=== PATIENT | female | born 1960 | race Caucasian/White ===

== ENCOUNTER 2024-08-22 22:30 | Outpatient (CLI) | payer SELFPAY ==
--- NOTE | 2024-08-22 | DI.RAD_ITS ---
Exam(s) XR TOE RT FIFTH EXAM: XR TOE RT FIFTH CLINICAL HISTORY: PAIN TOE RT FOOT, M79.674, ABNL POSTERIOR ALIGNMENT, POSSIBLE DISLOCATION. TECHNIQUE: 2D digital imaging was performed. Three images were obtained. COMPARISON: No priors for comparison. FINDINGS: BONES: No acute fracture is present. No bony destructive lesion is seen. JOINTS: No dislocation present. SOFT TISSUE: Normal. IMPRESSION: No evidence of acute fracture, dislocation, or subluxation. DATA REPOSITORY: RADIATION DOSE DELIVERED:
--- NOTE | 2024-08-22 | DI.RAD_ITS ---
Exam(s) XR TOE RT FOURTH EXAM: XR TOE RT FOURTH CLINICAL HISTORY: PAIN TOE RT FOOT, M79.674, ABNL POSTERIOR ALIGNMENT, POSSIBLE DISLOCATION. TECHNIQUE: 2D digital imaging was performed. COMPARISON: No exams were available for comparison FINDINGS: BONES: No acute fracture is present. No bony destructive lesion is seen. JOINTS: There is a posterior subluxation at the PIP joint of the 4th toe. SOFT TISSUE: Soft tissue swelling of the 4th toe. IMPRESSION: Posterior subluxation of the PIP joint of the right 4th toe. No fracture is identified. DATA REPOSITORY: RADIATION DOSE DELIVERED:
--- OUTSIDE RECORDS SUMMARY | 2024-08-22 22:41 | XMS_ITS | Encounter Summary ---
Author Organization [facility] Address [address] [place] [address] Care Team Providers Care Geomagnetician Name Role Phone Unavailable Primary Care Provider Unavailabl e Encounter Details Date Type Department Care Team (Late st Contact Info) Description 10/12/2003 Results Only [facility] - Maple conversion [address] [place] [address] Melinda Rodriguez, [facility] [address] [place] [address] Social History Tobacco Use Types Packs/Day Years Used Date Smoking Tobacco: Never Assessed Sex and Gender Information Value Date Recorded Sex Assigned at Not on file Gender Identity Not on file Sexual Orientation Not on file documented as of this encounter Plan of Treatment Not on file documented as of this encounter Procedures Procedure Name Priority Date/Time Associated Diagnosis Comments CYTOPATHOLOGY Routine 10/12/2003 0:00 EST documented in this encounter Results * CYTOPATHOLOGY (10/12/2003 0:00 EST) Pathology Report: CYTOPATHOLOGY REPORT Reports generated via electronic interface contain original data; however they are lacking the format of the original report. Caution should be taken when reading/interpreti ng unformatted reports. Name: ? YULIYA BONNER ? Accession #: ? [id number] : ? 1960 (Age: 42) ??F ?Collect Date: ? 10/12/2003 Location: ? [facility] ? Receive Date: ? 10/16/2003 Provider: ?MELINDA RODRIGUEZ DIRECTOR SHOPPER MARKETING Copy to: ? Specimen/Source: ?ThinPrep Pap Test, Cervix/Endocervix Last Menstrual Period: ? 09/30/03 Previous Gynecologic Pathology: ? ASC-US: 1996, paps neg since ? SPECIMEN ADEQUACY ? Satisfactory for Evaluation - transformation zone component present - scant squamous epithelial component secondary to excessive blood GENERAL CATEGORIZATION ? Negative for Intraepithelial Lesion or Malignancy ? Document reviewed and electronically signed by: ? Ingrid Sorto, SCT(ASCP) ? Report Date: ??10/18/2003 08:41 End of Report [facility] 10/12/2003 10/16/2003 Melinda Rodriguez DIRECTOR SHOPPER MARKETING PATHOLOGY ORDERABLES [facility] [address] [place] [address] documented in this encounter Visit Diagnoses Not on filedocumented in this encounter
--- OUTSIDE RECORDS SUMMARY | 2024-08-22 22:41 | XMS_ITS | Encounter Summary ---
Author Organization [facility] Address [address] [place] [address] Care Team Providers Care Ice Skating Teacher Name Role Phone Unavailable Primary Care Provider Unavailabl e Encounter Details Date Type Department Care Team (Late st Contact Info) Description 02/22/2012 Results Only [facility] - [facility] ([facility] [address] [place] [address] Jorden Ryan MD [address] [place] [address] [id number] Social History Tobacco Use Types Packs/Day Years Used Date Smoking Tobacco: Never Assessed Sex and Gender Information Value Date Recorded Sex Assigned at Not on file Gender Identity Not on file Sexual Orientation Not on file documented as of this encounter Plan of Treatment Not on file documented as of this encounter Procedures Procedure Name Priority Date/Time Associated Diagnosis Comments SURGICAL PATHOLOGY Routine 02/22/2012 0:00 EDT documented in this encounter Results * SURGICAL PATHOLOGY (02/22/2012 0:00 EDT) Pathology Report: SURGICAL PATHOLOGY REPORT Reports generated via electronic interface contain original data; however they are lacking the format of the original report. Caution should be taken when reading/interpreti ng unformatted reports. Name: ? BONNERYULIYA ? Accession #: ? [id number] ? : ? 1960 (Age: 51) ??F ? Collect Date: ? 02/22/2012 ? Location: ? [facility] ? Receive Date: ? 02/23/2012 ? Provider: JORDEN RYAN MD Copy to: ? Final Pathologic Diagnosis: ? Skin of face, shave biopsy: - Melanocytic nevus, intradermal type. Microscopic Description: ? Sections are of a papule with mild epidermal hyperplasia and hyperkeratosis. ??There is a proliferation of melanocytes within the dermis. ??The proliferation consists of nests, cords, and strands that diminish in size with descent into the dermis. ??The melanocytes are slightly enlarged but generally have round-oval nuclei and a moderate amount of cytoplasm. ??The melanocytes show marine service manager maturation. ??(Dr. Mcdaniel)/[facility] Document reviewed and electronically signed by: ALONZO MCDANIEL MD Report ??Date: 02/24/2012 13:53 By the signature above, the attending physician certifies that he/she has personally conducted a gross and/or microscopic examination of the described specimens and rendered or confirmed the above diagnosis. Specimen(s) Received: ? Shave Clinical History: ? Papule on face; ? B[facility] Gross Description: ? Received in formalin labelled Yuliya Bonner and face is a 0.9 x 0.6 cm, irregular shave biopsy of parisi-white skin. ??There is an eccentric, 0.5 x 0.4 x 0.2 cm, ovoid, parisi-brown, cobblestone papule. ??The specimen is bisected and entirely submitted in a single cassette. ??(Carrie Cervantes)/[facility] End of Report [facility] 02/22/2012 02/23/2012 16: 57 EDT Jorden Ryan MD PATHOLOGY ORDERABLES [facility] [address] [place] [address] documented in this encounter Visit Diagnoses Not on filedocumented in this encounter
--- OUTSIDE RECORDS SUMMARY | 2024-08-22 22:41 | XMS_ITS | Encounter Summary ---
Author Organization [facility] Address [address] [place] [address] Care Team Providers Care Lard Mixer Name Role Phone Unavailable Primary Care Provider Unavailabl e Encounter Details Date Type Department Care Team (Late st Contact Info) Description 02/23/2011 Results Only [facility] - [facility] ([facility]) [address] [place], [place] [address] Melinda Rodriguez, [facility] [address] [place] [address] Social History Tobacco Use Types Packs/Day Years Used Date Smoking Tobacco: Never Assessed Sex and Gender Information Value Date Recorded Sex Assigned at Not on file Gender Identity Not on file Sexual Orientation Not on file documented as of this encounter Plan of Treatment Pending Results Name Type Priority Associated Diagnoses Date /Time CYTOPATHOLOGY Pathology Routine 02/23/2011 0:00 EDT documented as of this encounter Procedures Procedure Name Priority Date/Time Associated Diagnosis Comments PAP TEST- RESULT ONLY Routine 02/23/2011 0:00 EDT documented in this encounter Results * PAP TEST- RESULT ONLY (02/23/2011 0:00 EDT) Pathology Report: CYTOPATHOLOGY REPORT ? Reports generated via electronic interface contain original data; ? however they are lacking the format of the original report. ? Caution should be taken when reading/interpreti ng unformatted reports. ? Name: ? YULIYA ROQUE ? Accession #: ? [id number] ? : ? 1960 (Age: 50) ??F ?Collect Date: ? 02/23/2011 ? Location: ? [facility] ? Receive Date: ? 02/24/2011 ? Provider: ?MELINDA DESTINEE RING FACER ? Copy to: ? Specimen/Source: ?Pap Test, Vagina, ThinPrep Imaging System with manual ?? evaluation ? Last Menstrual Period: ? Previous Gynecologic Pathology: ? Adenocarcinoma: 2008 grade I-II uterine adencarcinoma ? Treatment History: ? Hysterectomy ? SPECIMEN ADEQUACY ? Satisfactory for Evaluation ? - assessment of transformation zone component not applicable ( e.g. atrophy, ? vaginal sample, hysterectomy) ? GENERAL CATEGORIZATION ? Negative for Intraepithelial Lesion or Malignancy ? Document reviewed and electronically signed by: ? Minh Stumler, CT(ASCP) ? Report Date: ??03/02/2011 09:25 ? End of Report ? [facility] 02/23/2011 02/24/2011 Melinda Rodriguez RING FACER PATHOLOGY ORDERABLES [facility] [address] [place] [address] documented in this encounter Visit Diagnoses Not on filedocumented in this encounter
--- OUTSIDE RECORDS SUMMARY | 2024-08-22 22:41 | XMS_ITS | Encounter Summary ---
Author Organization [facility] Address [address] [place] [address] Care Team Providers Care Curriculum Assistant Principal Name Role Phone Unavailable Primary Care Provider Unavailabl e Encounter Details Date Type Department Care Team (Late st Contact Info) Description 03/02/2008 Results Only [facility] - Maple conversion [address] [place] [address] Clint Arguelles MD [address] [place] [address] [address] Social History Tobacco Use Types Packs/Day Years Used Date Smoking Tobacco: Never Assessed Sex and Gender Information Value Date Recorded Sex Assigned at Not on file Gender Identity Not on file Sexual Orientation Not on file documented as of this encounter Plan of Treatment Not on file documented as of this encounter Procedures Procedure Name Priority Date/Time Associated Diagnosis Comments CYTOPATHOLOGY Routine 03/02/2008 0:00 EDT SURGICAL PATHOLOGY Routine 03/02/2008 0:00 EDT documented in this encounter Results * SURGICAL PATHOLOGY (03/02/2008 0:00 EDT) Pathology Report: SURGICAL PATHOLOGY REPORT Reports generated via electronic interface contain original data; however they are lacking the format of the original report. Caution should be taken when reading/interpreti ng unformatted reports. Name: ? YULIYA BONNER ? Accession #: ? [id number] ? : ? 1960 (Age: 47) ??F ? Collect Date: ? 03/02/2008 ? Location: ? [facility] ? Receive Date: ? 03/03/2008 ? Provider: CLINT ARGUELLES MD Copy to: JORDEN HURT MD ? Final Pathologic Diagnosis: ? Endometrium, curettage: - Adenocarcinoma, endometrioid type, FIGO grade I. ??See comment. Comment: ? Dr. Pavel Gan has reviewed this case in consultation. ??Sections feature xzir-ck-uzrl glands and areas of confluent growth that show residual lumen formation. ??The findings are compatible with endometrioid adenocarcinoma. The tumor cells demonstrate variable cytoplasmic clearing, which may represent secretory-type change. ??Production Support Analyst sections have also been reviewed at the intradepartmental consultation conference. ??(Dr. Singleton)/[facility] Document reviewed and electronically signed by: MARISELA SINGLETON MD Report ??Date: 03/07/2008 14:59 By the signature above, the attending physician certifies that he/she has personally conducted a gross and/or microscopic examination of the described specimens and rendered or confirmed the above diagnosis. Specimen(s) Received: ? Endometrial curettage Clinical History: ? Profuse menorrhagia with anemia; multiple endomet polyps; LMP: 02/19/08 Gross Description: ? Received in formalin labelled Bonner and endometrial curettage is a 4.3 x 3.5 x 1.0 cm aggregate of hemorrhagic dln-rxqrv-xnfe tissue submitted entirely as (A1) through (A5). ??(Michelle Lara/jose End of Report [facility] 03/02/2008 03/03/2008 15: 14 EDT Clint Arguelles MD PATHOLOGY ORDERABLES [facility] [address] [place] [address] * CYTOPATHOLOGY (03/02/2008 0:00 EDT) Pathology Report: CYTOPATHOLOGY REPORT Reports generated via electronic interface contain original data; however they are lacking the format of the original report. Caution should be taken when reading/interpreti ng unformatted reports. Name: ? YULIYA BONNER ? Accession #: ? [id number] : ? 1960 (Age: 47) ??F ?Collect Date: ? 03/02/2008 Location: ? [facility] ? Receive Date: ? 03/02/2008 Provider: ?CLINT ARGUELLES MD Copy to: ? Specimen/Source: ?ThinPrep Pap Test, Cervix/Endocervix, processed on [employer] ThinPrep Imaging System, with manual evaluation Last Menstrual Period: ? 11/08 Menstrual/Pregnanc y Status: ? Irregular: menses Menorrhagia: severe now ? SPECIMEN ADEQUACY ? Unsatisfactory for Evaluation, - insufficient numbers of squamous epithelial cells (less than 10% of expected cellularity) - sample preparation compromised by excessive blood GENERAL CATEGORIZATION ? Specimen processed and examined, but unsatisfactory for evaluation of epithelial abnormality. Recommend repeat Pap test or further follow up, as clinically indicated. ? Document reviewed and electronically signed by: ? WILMER Chacon(ASCP) ? Report Date: ??03/08/2008 10:39 End of Report [facility] 03/02/2008 03/02/2008 Clint Arguelles MD PATHOLOGY ORDERABLES Performing Organization Address City/State/[facility] Co de Phone Number [facility] [address] [place] [address] documented in this encounter Visit Diagnoses Not on filedocumented in this encounter
--- OUTSIDE RECORDS SUMMARY | 2024-08-22 22:41 | XMS_ITS | Encounter Summary ---
Author Organization [facility] Address [address] [place] [address] Care Team Providers Care Stave Cutter Name Role Phone Unavailable Primary Care Provider Unavailabl e Encounter Details Date Type Department Care Team (Late st Contact Info) Description 08/29/2002 Results Only [facility] - Maple conversion [address] [place] [address] Melinda Rodriguez, [facility] [address] [place] [address] Social History Tobacco Use Types [...] Priority Date/Time Associated Diagnosis Comments CYTOPATHOLOGY Routine 08/29/2002 0:00 EST documented in this encounter Results * CYTOPATHOLOGY (08/29/2002 0:00 EST) Pathology Report: CYTOPATHOLOGY REPORT Reports generated via electronic interface contain original data; however they are lacking the format of the original report. Caution should be taken when reading/interpreti ng unformatted reports. Name: ? YULIYA BONNER ? Accession #: ? [id number] : ? 1960 (Age: 41) ??F ?Collect Date: ? 08/29/2002 Location: ? [facility] ? Receive Date: ? 08/30/2002 Provider: ?MELINDA RODRIGUEZ MANAGER INFORMATION Copy to: ? Specimen/Source: ?ThinPrep Pap Test, Cervix/Endocervix Last Menstrual Period: ? 08/11/02 Previous Gynecologic Pathology: ? ASC-US: 1996 Other: ? Additional clinical information: 1997, 1998, 190 WNLx ? SPECIMEN ADEQUACY ? Satisfactory for Evaluation - transformation zone component present GENERAL CATEGORIZATION ? Negative for Intraepithelial Lesion or Malignancy ? Document reviewed and electronically signed by: ? Caron Boyer, SCT(ASCP) ? Report Date: ??09/01/2002 14:23 End of Report [facility] 08/29/2002 08/30/2002 Melinda Rodriguez MANAGER INFORMATION PATHOLOGY ORDERABLES Performing Organization Address City/State/[facility] Co de Phone Number [facility] [address] [place] [address] documented in this encounter Visit Diagnoses Not on filedocumented in this encounter
--- OUTSIDE RECORDS SUMMARY | 2024-08-22 22:41 | XMS_ITS | Encounter Summary ---
Author Organization [facility] Address [address] [place] [address] Care Team Providers Care Product Applications Scientist Name Role Phone Unavailable Primary Care Provider Unavailabl e Encounter Details Date Type Department Care Team (Late st Contact Info) Description 02/11/[address] [facility] - Maple conversion [address] [place] [address] Melinda Rodriguez, [facility] [address] [place] [address] Social History Tobacco Use Types [...] Priority Date/Time Associated Diagnosis Comments CYTOPATHOLOGY Routine 02/11/2006 0:00 EDT documented in this encounter Results * CYTOPATHOLOGY (02/11/2006 0:00 EDT) Pathology Report: CYTOPATHOLOGY REPORT Reports generated via electronic interface contain original data; however they are lacking the format of the original report. Caution should be taken when reading/interpreti ng unformatted reports. Name: ? BONNER YULIYA Toth ? Accession #: ? [id number] : ? 1960 (Age: 45) ??F ?Collect Date: ? 02/11/2006 Location: ? [facility] ? Receive Date: ? 02/12/2006 Provider: ?MELINDA RODRIGUEZ SELF PROPELLED DREDGE OPERATOR Copy to: ? Specimen/Source: ?ThinPrep Pap Test, Cervix/Endocervix, processed on [employer] ThinPrep Imaging System, with manual evaluation Last Menstrual Period: ? 01/14/06 Previous Gynecologic Pathology: ? ASC-US: 1997 paps neg since Other: ? HPVA - HPV testing requested if ASC-US on the current ThinPrep Pap test. ? SPECIMEN ADEQUACY ? Unsatisfactory for Evaluation, - insufficient numbers of squamous epithelial cells (less than 10% of expected cellularity) - sample preparation compromised by excessive blood GENERAL CATEGORIZATION ? Specimen processed and examined, but unsatisfactory for evaluation of epithelial abnormality. Recommend repeat Pap test or further follow up, as clinically indicated. ? Document reviewed and electronically signed by: ? PEDRITO Morales(ASCP) ? Report Date: ??02/17/2006 09:48 End of Report [facility] 02/11/2006 02/12/2006 Melinda Rodriguez SELF PROPELLED DREDGE OPERATOR PATHOLOGY ORDERABLES [facility] [address] [place] [address] documented in this encounter Visit Diagnoses Not on filedocumented in this encounter
--- OUTSIDE RECORDS SUMMARY | 2024-08-22 22:41 | XMS_ITS | Encounter Summary ---
Author Organization [facility] Address [address] [place] [address] Care Team Providers Care Global Marketing Manager Name Role Phone Unknown, Provider Primary Care Provider [phone] Encounter Details Date Type Department Care Team (Late st Contact Info) Description 11/17/2021 Lab Requisition [facility] Pathology & Laboratory Medicine - [facility] [address] [place] [address] Outr Resulting Lab, Provider Social History Tobacco Use Types Packs/Day Years Used Date Smoking Tobacco: Never Smokeless Tobacco: Never Alcohol Use Standard Drinks/Week Comments Yes 12 (1 standard drink = 0.6 oz pu re alcohol) Interpersonal Safety Answer Date Record ed Physically Hurt Never 06/02/2020 Verbally Threaten Not on file 06/02/2020 Sex and Gender Information Value Date Recorded Sex Assigned at Not on file Gender Identity Not on file Sexual Orientation Not on file documented as of this encounter Functional Status Functional Status Response Date of Assess ment Because of a physical, menta l, or emotional condition, does this person have difficulty doing errands alone such as visiting a doctor's office or shopping? No 06/26/2019 Cognitive Status Response Date of Assessm ent Because of a physical, menta l, or emotional condition, does this person have serious difficulty concentrating, remembering, or making decisions? No 06/26/2019 documented as of this encounter Plan of Treatment Not on file documented as of this encounter Procedures Procedure Name Priority Date/Time Associated Diagnosis Comments HEPATITIS B SURFACE ANTIBODY Routine 11/17/2021 12:45 EST documented in this encounter Results * HEPATITIS B SURFACE ANTIBODY (11/17/2021 12:45 EST) Hep B Surface Ab, Quantitative 6.9 See Note mIU/mL 11/18/2021 9:01 EST [facility] Comment: Reference Range for Hep B Surface Ab, Quant: Positive: >= 10.0 mIU/mL Negative: ??< 10.0 mIU/mL Patient is presumed to not be immune to infection with Hepatitis B Virus. Hep B Surface Ab, Qualitative Negative See Note 11/18/2021 9:01 EST [facility] Comment: Reference Range for Hep B Surface Ab, Qual: Unvaccinated: ??Negative Vaccinated: ??Positive Blood VENOUS BLOOD / Unknown 11/17/2021 12:45 EST 11/17/2021 21:06 EST Provider Outr Resulting Lab CHEMISTRY & BLOOD GAS ORDERABLES Performing Organization Address City/State/[facility] Co de Phone Number [facility] [address] [place] [address] documented in this encounter Visit Diagnoses Not on filedocumented in this encounter Care Teams Global Marketing Manager Relationship Specialty Start Date End Date Unknown, Provider, PCP - General 12/15/17 documented as of this encounter
--- OUTSIDE RECORDS SUMMARY | 2024-08-22 22:41 | XMS_ITS | Encounter Summary ---
Author Organization [facility] Address [address] [place] [address] Care Team Providers Care Corner Brace Block Machine Operator Name Role Phone Josiah Ryan MD Primary Care Provider [phone] Encounter Details Date Type Department Care Team (Latest Contact Info) Description 12/10/2017 11:49 EST - 12/10/2017 23:59 EST Hospital Encounter [address] [address] Unknown, Provider, Discharge Disposition: Home or Self Care Social History Tobacco Use Types Packs/Day Years Used Date Smoking Tobacco: Never Assessed Sex and Gender Information Value Date Recorded Sex Assigned at Not on file Gender Identity Not on file Sexual Orientation Not on file documented as of this encounter Discharge Disposition Disposition Code Departure Means Destination Home or Self Detention documented in this encounter Plan of Treatment Not on file documented as of this encounter Visit Diagnoses Not on filedocumented in this encounter Care Teams Corner Brace Block Machine Operator Relationship Specialty Start Date End Date Josiah Ryan MD [address] [place] [address] [place] [address] PCP - General 02/29/12 12/14/17 documented as of this encounter
--- OUTSIDE RECORDS SUMMARY | 2024-08-22 22:41 | XMS_ITS | Encounter Summary ---
Author Organization [facility] Address [address] [place] [address] Care Team Providers Care Parking Regulation Enforcement Officer Name Role Phone Unavailable Primary Care Provider Unavailabl e Encounter Details Date Type Department Care Team (Late st Contact Info) Description 04/12/2008 Results Only [facility] - [facility] conversion [address] [place] [address] Jorden Ryan MD [address] [place] [id number] Social History Tobacco Use Types Packs/Day Years Used Date Smoking Tobacco: Never Assessed Sex and Gender Information Value Date Recorded Sex Assigned at Not on file Gender Identity Not on file Sexual Orientation Not on file documented as of this encounter Plan of Treatment Not on file documented as of this encounter Procedures Procedure Name Priority Date/Time Associated Diagnosis Comments SURGICAL PATHOLOGY Routine 04/12/2008 0:00 EDT documented in this encounter Results * SURGICAL PATHOLOGY (04/12/2008 0:00 EDT) Pathology Report: SURGICAL PATHOLOGY REPORT Reports generated via electronic interface contain original data; however they are lacking the format of the original report. Caution should be taken when reading/interpreti ng unformatted reports. Name: ? YULIYA BONNER ? Accession #: ? [id number] ? : ? 1960 (Age: 47) ??F ? Collect Date: ? 04/12/2008 ? Location: ? [facility] ? Receive Date: ? 04/14/2008 ? Provider: JORDEN RYAN MD Copy to: ? Final Pathologic Diagnosis: ? Skin of face, shave biopsy: - Melanocytic nevus, compound type. Microscopic Description: ? Sections are of a dome-shaped papule. ??The epidermis is of normal thickness but has a diminutive rete architecture. ??The papule is formed by a circumscribed and symmetric compound proliferation of melanocytes. ??The junctional component consists primarily of nests with single cells at the summit of the papule. ??The nests are generally small and evenly spaced. ??The melanocytes are slightly enlarged but have relatively uniform round-oval nuclei and a moderate amount of cytoplasm containing melanin pigment. ??The dermal component consists of nests, cords, and strands of similar melanocytes showing parliamentary archivist maturation with descent. ??(Dr. Mcdaniel)/[facility] Document reviewed and electronically signed by: Emmie Mcdaniel MD Report ??Date: 04/17/2008 15:59 By the signature above, the attending physician certifies that he/she has personally conducted a gross and/or microscopic examination of the described specimens and rendered or confirmed the above diagnosis. Specimen(s) Received: ? Shave biopsy Clinical History: ? Enlarging lump on face Gross Description: ? Received in formalin labelled Bonner and face is an irregular 0.9 x 0.8 by less than 0.1 cm parisi granular skin shave. ??There is an eccentric 0.4 x 0.4 x 0.2 cm finely bosselated parisi-brown papule. ??The specimen is trisected and is entirely submitted in one cassette. ??(Carrie Bravo)/[facility] End of Report BRENDA MCQUEEN 04/12/2008 04/14/2008 10: 21 EDT Jorden Ryan MD PATHOLOGY ORDERABLES Performing Organization Address City/State/[facility] Phone Number [address] [address] documented in this encounter Visit Diagnoses Not on filedocumented in this encounter
--- OUTSIDE RECORDS SUMMARY | 2024-08-22 22:41 | XMS_ITS | Referral Summary ---
Author Organization [facility] Address [address] [place] [address] Care Team Providers Care Bookie Name Role Phone Unknown, Provider Primary Care Provider [phone] Allergies No known active allergies Medications Medication Sig Dispensed Refills Start Date End Date Status lisinopril (PRINIVIL) 10 mg tablet Take 10 mg by mouth daily. Active DULoxetine (CYMBALTA) 20 mg delayed release capsule Take 20 mg by mouth 2 times daily. Active simvastatin (ZOCOR) 10 mg tablet Take 10 mg by mouth daily. Active Multivitamins with Minerals tablet tablet Take 1 Tab by mouth daily. Active Social History Tobacco Use Types Packs/Day Years [...] on file Sexual Orientation Not on file Functional Status Functional Status Response Date of [...] concentrating, remembering, or making decisions? No 06/26/2019 Plan of Treatment Not on file Care Teams Bookie Relationship Specialty Start Date End Date Unknown, ProviderMD PCP - General 12/15/17
--- OUTSIDE RECORDS SUMMARY | 2024-08-22 22:41 | XMS_ITS | Encounter Summary ---
Author Organization [facility] Address [address] [place] [address] Care Team Providers Care Desk Manager Name Role Phone Unknown, Provider Primary Care Provider [phone] Encounter Details Date Type Department Care Team (Late st Contact Info) Description 03/15/2018 Results Only [facility] [phone] Jeet Zambrano, [address] [place], [place] [id number] Social History Tobacco Use Types Packs/Day Years Used Date Smoking Tobacco: Never Assessed Sex and Gender Information Value Date Recorded Sex Assigned at Not on file Gender Identity Not on file Sexual Orientation Not on file documented as of this encounter Plan of Treatment Not on file documented as of this encounter Procedures Procedure Name Priority Date/Time Associated Diagnosis Comments SURGICAL PATHOLOGY Routine 03/15/2018 23 :37 EDT documented in this encounter Results * SURGICAL PATHOLOGY (03/15/2018 23:37 EDT) Pathology Report: SURGICAL PATHOLOGY REPORT Reports generated via electronic interface contain original data; however they are lacking the format of the original report. Caution should be taken when reading/interpret ing unformatted reports. Name: ? YULIYA BONNER ? Accession #: ? [id number] ? : ? 1960 (Age: 57) ??F ? Collect Date: ? 03/15/2018 ? Location: ? [facility] ? Receive Date: ? 03/16/2018 ? Provider: JEET ZAMBRANO DO Copy to: BHARATHI ALONZO DO ? Final Pathologic Diagnosis: SKIN OF TRAPEZIUS, LEFT, SHAVE EXCISION: - Epidermal reparative change and dermal scar. - No residual squamous cell carcinoma in situ. - Incidental melanocytic nevus, predominantly junctional type, with unusual architectural features and mild cytologic atypia. - Margins of excision negative. Document reviewed and electronically signed by: NANI NGUYEN MD Report ??Date: 03/18/2018 13:51 By the signature above, the attending physician certifies that he/she has personally conducted a gross and/or microscopic examination of the described specimens and rendered or confirmed the above diagnosis. 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 Received in formalin labelled with proper patient identification (initials D, A) and re-shave left trapezius is a shave biopsy of an irregular shaped parisi skin (1.5 x 1.5 x 0.1 cm). There is an off center scar-like parisi-white area that measures roughly 0.8 x 0.7 cm. The margin is inked blue. ??The specimen is sectioned into six pieces and entirely submitted in 1-3. ANNE Reynoso (ASCP) 03/17/2018 8:44 AM End of Report [facility] 03/15/2018 23:3 7 EDT 03/16/2018 23:37 EDT Jeet Zambrano DO PATHOLOGY ORDER LENCHO [facility] [address] [place] [address] documented in this encounter Visit Diagnoses Not on filedocumented in this encounter Care Teams Desk Manager Relationship Specialty Start Date End Date Unknown, Provider, PCP - General 12/15/17 documented as of this encounter
--- OUTSIDE RECORDS SUMMARY | 2024-08-22 22:41 | XMS_ITS | Encounter Summary ---
Author Organization [facility] Address [address] [place] [address] Care Team Providers Care Cadastral Surveyor Name Role Phone Josiah Ryan MD Primary Care Provider [phone] Encounter Details Date Type Department Care Team (Late st Contact Info) Description 11/06/2014 Results Only [facility] [phone] Bharathi Alonzo, DO [address] [place] [address] Social History Tobacco Use Types Packs/Day Years [...] Diagnosis Comments PAP TEST- RESULT ONLY Routine 11/06/2014 0:00 EST documented in this encounter Results * PAP TEST- RESULT ONLY (11/06/2014 0:00 EST) Pathology Report: CYTOPATHOLOGY REPORT Reports generated via electronic interface contain original data; however they are lacking the format of the original report. Caution should be taken when reading/interpreti ng unformatted reports. Name: ? YULIYA BONNER ? Accession #: ? [id number] ? : ? 1960 (Age: 53) ??F ? N #: ? [id number] ?Collect Date: ? 11/06/2014 ? Location: ? [facility] ? Receive Date: ? 11/08/2014 ? Provider: BHARATHI ALONZO DO Copy to: ? Final Report SPECIMEN ADEQUACY ? Satisfactory for Evaluation - assessment of transformation zone component not applicable ( e.g. atrophy, vaginal sample, hysterectomy) GENERAL CATEGORIZATION ? Negative for Intraepithelial Lesion or Malignancy ?? Treatment History: Hysterectomy: For cancer had no f/u done for 5-10 years Specimen/Source: ??Pap Test, Vagina, ThinPrep Imaging System with manual evaluation Document reviewed and electronically signed by: ? Ruth Francisco, [place](ASCP) ? Report ??Date: 11/12/2014 14:16 HPV with Pap Test ? Date Ordered: ? 11/12/2014 ? Status: ?? Signed Out ?Date Complete: ? 11/14/2014 ? By: ??System Interface ? Date Reported: ? 11/14/2014 ? Interpretation RESULT: Negative for HPV. No E6 or E7 mRNA is detected from HPV types 16,18,31,33,35, 39,45,51,52,56,58, 59,66, and 68 by shield runner mediated amplification. Test not validated for this type of specimen or collection method. The sensitivity and specificity of the test in this situation are unknown. The results should be interpreted with caution. Comments Document reviewed and electronically signed by: ? System Interface ? Report date: 11/14/2014 By the signature above, the attending physician certifies that he/she has personally conducted a gross and/or microscopic examination of the described specimens and rendered or confirmed the above diagnosis. End of Report [facility] 11/06/2014 11/08/2014 Bharathi Alonzo DO PATHOLOGY ORDERABL ES [facility] [address] [place] [address] documented in this encounter Visit Diagnoses Not on filedocumented in this encounter Care Teams Cadastral Surveyor Relationship Specialty Start Date End Date Josiah Ryan MD [address] [place] [address] [place] [address] PCP - General 02/29/12 12/14/17 documented as of this encounter
--- OUTSIDE RECORDS SUMMARY | 2024-08-22 22:41 | XMS_ITS | Encounter Summary ---
Author Organization [facility] Address [address] [place] [address] Care Team Providers Care Gun Numberer Name Role Phone Unavailable Primary Care Provider Unavailabl e Encounter Details Date Type Department Care Team (Late st Contact Info) Description 07/29/2001 Results Only [facility] - Maple conversion [address] [place] [address] Melinda Rodriguez, [facility] [address] [place] [address] Social History Tobacco Use Types [...] Priority Date/Time Associated Diagnosis Comments CYTOPATHOLOGY Routine 07/29/2001 0:00 EDT documented in this encounter Results * CYTOPATHOLOGY (07/29/2001 0:00 EDT) Pathology Report: CYTOPATHOLOGY REPORT Reports generated via electronic interface contain original data; however they are lacking the format of the original report. Caution should be taken when reading/interpreti ng unformatted reports. Name: ? BONNER YULIYA Toth ? Accession #: ? [id number] : ? 1960 (Age: 40) ??F ?Collect Date: ? 07/29/2001 Location: ? [facility] ? Receive Date: ? 08/02/2001 Provider: ?MELINDA RODRIGUEZ BATCH FREEZER OPERATOR Copy to: ? Specimen/Source: ?ThinPrep Pap Test, Cervix/Endocervix Last Menstrual Period: ? SPECIMEN ADEQUACY ? Satisfactory for evaluation. GENERAL CATEGORIZATION ? Within Normal Limits ? Document reviewed and electronically signed by: ? PEDRITO Patel(ASCP) ? Report Date: ??08/03/2001 13:00 End of Report BRENDA MCQUEEN 07/29/2001 08/02/2001 Melinda Rodriguez BATCH FREEZER OPERATOR PATHOLOGY ORDERABLES BRENDA MCQUEEN [address] [place] [address] documented in this encounter Visit Diagnoses Not on filedocumented in this encounter
--- OUTSIDE RECORDS SUMMARY | 2024-08-22 22:41 | XMS_ITS | Encounter Summary ---
Author Organization [facility] Address [address] [place] [id number] Care Team Providers Care Electronic Equipment Repairer Name Role Phone Unknown, Provider Primary Care Provider [phone] Encounter Details Date Type Department Care Team (Latest Contact Info) Description 03/15/2018 11:53 EDT - 03/15/2018 23:59 EDT Hospital Encounter [address] [address] Unknown, Provider, Discharge Disposition: Home or Self Care Social History Tobacco Use Types Packs/Day Years Used Date Smoking Tobacco: Never Assessed Sex and Gender Information Value Date Recorded Sex Assigned at Not on file Gender Identity Not on file Sexual Orientation Not on file documented as of this encounter Discharge Disposition Disposition Code Departure Means Destination Home or Self Long-Term documented in this encounter Plan of Treatment Not on file documented as of this encounter Visit Diagnoses Not on filedocumented in this encounter Care Teams Electronic Equipment Repairer Relationship Specialty Start Date End Date Unknown, Provider, PCP - General 12/15/17 documented as of this encounter
--- OUTSIDE RECORDS SUMMARY | 2024-08-22 22:41 | XMS_ITS | Encounter Summary ---
Author Organization [facility] Address [address] [place] [address] Care Team Providers Care Drive Man Name Role Phone Unavailable Primary Care Provider Unavailabl e Encounter Details Date Type Department Care Team (Late st Contact Info) Description 12/08/[address] [facility] - Maple conversion [address] [place] [address] Clint Arguelles MD [address] [address] [address] Social History Tobacco Use Types [...] Priority Date/Time Associated Diagnosis Comments CYTOPATHOLOGY Routine 12/08/2004 0:00 EST documented in this encounter Results * CYTOPATHOLOGY (12/08/2004 0:00 EST) Pathology Report: CYTOPATHOLOGY REPORT Reports generated via electronic interface contain original data; however they are lacking the format of the original report. Caution should be taken when reading/interpreti ng unformatted reports. Name: ? YULIYA BONNER ? Accession #: ? [id number] : ? 1960 (Age: 44) ??F ?Collect Date: ? 12/08/2004 Location: ? [facility] ? Receive Date: ? 12/09/2004 Provider: ?CLINT ARGUELLES MD Copy to: ? Specimen/Source: ?ThinPrep Pap Test, Cervix/Endocervix Last Menstrual Period: ? 12/02/04 ? SPECIMEN ADEQUACY ? Satisfactory for Evaluation - transformation zone component present GENERAL CATEGORIZATION ? Negative for Intraepithelial Lesion or Malignancy ? Document reviewed and electronically signed by: ? WILMER Chacon(ASCP) ? Report Date: ??12/12/2004 14:00 End of Report BRENDA MCQUEEN 12/08/2004 12/09/2004 Clint Arguelles MD PATHOLOGY ORDERABLES BRENDA MCQUEEN [address] [place] [address] documented in this encounter Visit Diagnoses Not on filedocumented in this encounter
--- OUTSIDE RECORDS SUMMARY | 2024-08-22 22:41 | XMS_ITS | Encounter Summary ---
Author Organization [facility] Address [address] [place] [address] Care Team Providers Care Adjutant General Name Role Phone Unknown, Provider Primary Care Provider [phone] Reason for Visit * Reason Comments New Patient Visit ASOM * Referral (Routine) - Closed Specialty Diagnoses / Procedures Referred By Contmeño t Referred To Contact Otolaryngology Diagnoses Acute serous otitis media, right ear Corin Alegria, PAMikael [address] [place] [id number] [place] [address] [place] [address] Referral ID Status Reason Start Date Expiration Date Visits Re quested Visits Authorized [id number] Closed 1 1 Encounter Details Date Type Department Care Team (Late st Contact Info) Description 06/26/2019 9:15 EDT Office Visit [facility] ENT- Main [address] [id number] Jenae Wood MD [address] [facility], [address] [place] [id number] Subjective tinnitus of both ears (Primary Dx); Sensorineural hearing loss, bilateral Social History Tobacco Use Types Packs/Day Years Used Date Smoking Tobacco: Never Smokeless Tobacco: Never Alcohol Use Standard Drinks/Week Comments Yes 12 (1 standard drink = 0.6 oz pu re alcohol) Sex and Gender Information Value Date Recorded [...] No 06/26/2019 documented as of this encounter Progress Notes * Piper Lomas MD - 06/26/2019 0915 EDT Subjective: Patient ID: Yuliya Bonner is an 58 y.o. female. Chief Complaint Patient presents with ??? New Patient Visit ASOM HPI Ms. Bonner is a 58 year old female with a history of migraines and uterine cancer s/p hysterectomywho presents for evaluation ASOM and hearing loss. She had right OM in December 2018 after which she had persistent middle ear fluid. She reports the fluid has since resolved. She does not have a history of recurrent OM aside from when she was a child. No history of ear surgeries in the past. She also reports gradual onset of bilateral hearing loss, left possibly worse than the right. She first noticed this about 5 years ago. The hearing loss does not fluctuate. She has intermittent bilateral tinnitus that is low-pitch, constant and nonpulsatile. No associated dizziness or aural fullness. She does have a history of loud noise exposure (used to shoot guns but wore ear protection). There is no family history of hearing loss. There is no problem list on file for this patient. Past Medical History: Diagnosis Date ??? Cancer ([facility]) 2011 Uterine ??? Cough ??? Ear pain ??? Hearing loss ??? Hypertension ??? Migraines ??? Wheezing Past Surgical History: Procedure Laterality Date ??? CYST REMOVAL ??? HYSTERECTOMY ??? TONSILLECTOMY Family History Problem Relation Age of Onset ??? Migraines Mother ??? Cancer Mother ??? Cancer Maternal Aunt Social Social History Socioeconomic History ??? Marital status: Spouse name: Not on file ??? Number of children: Not on file ??? Years of education: Not on file ??? Highest education level: Not on file Occupational History ??? Not on file Social Needs ??? Financial resource strain: Not on file ??? Food insecurity: Worry: Not on file Inability: Not on file ??? Transportation needs: Medical: Not on file Non-medical: Not on file Tobacco Use ??? Smoking status: Never Smoker ??? Smokeless tobacco: Never Used Substance and Sexual Activity ??? Alcohol use: Yes Alcohol/week: 12.0 standard drinks Types: 12 Standard drinks or equivalent per week ??? Drug use: Never ??? Sexual activity: Not on file Lifestyle ??? Physical activity: Days per week: Not on file Minutes per session: Not on file ??? Stress: Not on file Relationships ??? Social connections: Talks on phone: Not on file Gets together: Not on file Attends methodist service: Not on file Active member of club or organization: Not on file Attends meetings of clubs or organizations: Not on file Relationship status: Not on file ??? Intimate partner violence: Fear of current or ex partner: Not on file Emotionally abused: Not on file Physically abused: Not on file Forced sexual activity: Not on file Other Topics Concern ??? Not on file Social History Narrative ??? Not on file Outpatient Medications Marked as Taking for the 06/26/19 encounter (Office Visit) with Jenae Wood MD Medication Sig Dispense Refill ??? DULoxetine (CYMBALTA) 20 mg delayed release capsule Take 20 mg by mouth 2 times daily. ??? lisinopril (PRINIVIL) 10 mg tablet Take 10 mg by mouth daily. ??? Multivitamins with Minerals tablet tablet Take 1 Tab by mouth daily. ??? simvastatin (ZOCOR) 10 mg tablet Take 10 mg by mouth daily. No Known Allergies Review of Systems Constitutional: Negative for chills, fever, malaise/fatigue and weight loss. HENT: Positive for ear pain and hearing loss. Negative for congestion and sore throat. Eyes: Negative for blurred vision, double vision and photophobia. Respiratory: Positive for cough and wheezing. Negative for hemoptysis and shortness of breath. Cardiovascular: Negative for chest pain, palpitations, claudication and leg swelling. Gastrointestinal: Negative for heartburn. Musculoskeletal: Negative for joint pain and myalgias. Skin: Negative for rash. Neurological: Negative for sensory change, focal weakness and headaches. Endo/Heme/Allergies: Negative for environmental allergies. Bruises/bleeds easily. - See HPI Objective: There were no vitals taken for this visit. Physical Exam Department of Otolaryngology PHYSICAL EXAMINATION CONSTITUTIONAL: VITAL SIGNS: Reviewed (3) There were no vitals taken for this visit. APPEARANCE: The patient appears alert, cooperative, and comfortable. ABILITY TO COMMUNICATE / VOICE: Normal HEAD AND FACE: INSPECTION: Normal without apparent scars, lesions, or masses. PALPATION: There are no masses or sinus tenderness. SALIVARY GLANDS: Submandibular and Parotid glands are normal bilaterally FACIAL STRENGTH: Intact and symmetrical bilaterally EXTERNAL EAR & NOSE: No external ear or nose deformity noted EYES: EYES: normal EARS, NOSE, MOUTH AND THROAT: OTOSCOPY: Right external auditory canal: patent and non-inflamed, small amount of wax deep in the canal, possibly against the TM, consistent with Qtip use Left external auditory canal: patent and non-inflamed Right tympanic membrane: intact without retraction, perforation or effusion Left tympanic membrane: intact without retraction, perforation or effusion WHISPER/TUNING FORK: Ibarra localizes to right at 512 Hz. Rinne positive for left ear Rinne positive for right ear NOSE: normal turbinates and mucosa: septum in midline LIPS, TEETH & GUMS: normal for age ORAL CAVITY & OROPHARYNX: normal HYPOPHARYNX & PHARYNGEAL EMERY: Not examined LARYNX: Not examined NASOPHARYNX: Not examined NECK: GENERAL: Supple, no asymmetry or crepitus, trachea midline THYROID: Normal LYMPHATIC: CERVICAL LYMPH NODES: No pathologic cervical lymphadenopathy noted RESPIRATORY: LUNGS: breathing comfortably on room air CARDIOVASCULAR: CARDIOVASCULAR: No peripheral cyanosis, edema. Normal pulses and temperature in extremities NEUROLOGIC: NEUROLOGIC: Normal mood and affect Audiogram: I have reviewed the audiogram performed today by our staff coffee host and it shows downsloping mild to severe bilateral high frequency SNHL. Word recognition: R 96% at 65 dB, L 88% at 70 dB. SRT: R 25 dB, L 30 dB. Tympanometry testing normal bilaterally. Assessment: Ms. Bonner is a 58-year-old female who presents for evaluation of hearing loss and persistent middle ear effusion following acute otitis media in December. Middle ear effusion has resolved. She does have evidence of bilateral high-frequency sensorineural hearing loss on testing today. Given degree ofloss, she could consider hearing aids. We discussed that her tinnitus is likely due to her hearing loss. We discussed distraction techniques at night to help her sleep and avoiding caffeine and aspirin which are known to exacerbate tinnitus. She could also consider tinnitus retraining therapy if itbecomes extremely bothersome to her. We will have her follow-up in 2 years for repeat hearing evaluation, sooner as needed. Plan: Yuliya was seen today for new patient visit. Diagnoses and all orders for this visit: Subjective tinnitus of both ears - HEARING EVALUATION Other orders - lisinopril (PRINIVIL) 10 mg tablet; Take 10 mg by mouth daily. - DULoxetine (CYMBALTA) 20 mg delayed release capsule; Take 20 mg by mouth 2 times daily. - simvastatin (ZOCOR) 10 mg tablet; Take 10 mg by mouth daily. - Multivitamins with Minerals tablet tablet; Take 1 Tab by mouth daily. As above. Piper Lomas MD Otolaryngology Resident PGY-2, #[id number] I have seen and examined the patient with Dr. Piper Lomas and agree with her exam findings, assessment, and plan. Thank you very much for the consultation. Sincerely, Jenae Wood MD documented in this encounter Plan of Treatment Scheduled Orders Name Type Priority Associated Diagnoses Orde r Schedule HEARING EVALUATION Audiology Routine Subjective Tinnitus Of Both Ears Ordered: 06/26/2019 documented as of this encounter Procedures Procedure Name Priority Date/Time Associated Diagnosis Comments AUDIOGRAM - SCANNED 07/10/2019 12:13 EDT documented in this encounter Results * AUDIOGRAM - SCANNED (07/10/2019 12:13 EDT) 07/10/2019 12:1 3 EDT Scan 2 Naval Architect Specialist PROCEDURE/MINOR CHIOMA GICAL ORDERABLES documented in this encounter Visit Diagnoses Diagnosis Subjective tinnitus of both ears- Primary Sensorineural hearing loss, bilateral documented in this encounter Historical Medications * This list may reflect changes made after this encounter. Medication Sig Dispensed Refills Start Date End Date Multivitamins with Minerals tablet tablet Take 1 Tab by mouth daily. simvastatin (ZOCOR) 10 mg tablet Take 10 mg by mouth daily. DULoxetine (CYMBALTA) 20 mg delayed release capsule Take 20 mg by mouth 2 times daily. lisinopril (PRINIVIL) 10 mg tablet Take 10 mg by mouth daily. added in this encounter Care Teams Adjutant General Relationship Specialty Start Date End Date Unknown, Provider, PCP - General 12/15/17 documented as of this encounter
--- OUTSIDE RECORDS SUMMARY | 2024-08-22 22:41 | XMS_ITS | Clinical Summary ---
Author Organization [facility] Address [address] [place] [address] Care Team Providers Care Trim Setter Name Role Phone Unknown, Provider Primary Care Provider [phone] Allergies No known active allergies Medications Medication [...] Take 1 Tab by mouth daily. Active Surgical History Surgery Date Site/Laterality Comments HYSTERECTOMY TONSILLECTOMY CYST REMOVAL Medical History Medical History Date Comments Migraines Cancer ([facility]) 2010 Uterine Hypertension Cough Wheezing Hearing loss Ear pain Family History Medical History Relation Comments Cancer Maternal Aunt Cancer Mother Migraines Mother Relation Status Comments Maternal Aunt Mother Social History Tobacco Use Types Packs/Day Years [...] on file Sexual Orientation Not on file Obstetrics History Plan of Treatment Health Maintenance Due Date Last Done Comments Hepatitis C Screen 1960 RSV Immunization ( o r 60+ Years) (1 - 1-dose 60+ series) 2022 COVID-19 Vaccine (2022-24 season) 2023 Care Teams Trim Setter Relationship Specialty Start Date End Date Unknown, Provider, [facility] - General 12/15/17
--- OUTSIDE RECORDS SUMMARY | 2024-08-22 22:41 | XMS_ITS | Encounter Summary ---
Author Organization [facility] Address [address] [place] [address] Care Team Providers Care Fish Hatchery Superintendent Name Role Phone Unavailable Primary Care Provider Unavailabl e Encounter Details Date Type Department Care Team (Late st Contact Info) Description 02/23/2006 Results Only [facility] [address] [place] [address] Clint Arguelles MD [address] [place] [address] [address] Social History Tobacco Use Types [...] Priority Date/Time Associated Diagnosis Comments CYTOPATHOLOGY Routine 02/23/2006 0:00 EDT documented in this encounter Results * CYTOPATHOLOGY (02/23/2006 0:00 EDT) Pathology Report: CYTOPATHOLOGY REPORT Reports generated via electronic interface contain original data; however they are lacking the format of the original report. Caution should be taken when reading/interpreti ng unformatted reports. Name: ? YULIYA BONNER ? Accession #: ? [id number] : ? 1960 (Age: 45) ??F ?Collect Date: ? 02/23/2006 Location: ? [facility] ? Receive Date: ? 02/24/2006 Provider: ?CLINT ARGUELLES MD Copy to: ? Specimen/Source: ?ThinPrep Pap Test, Cervix/Endocervix, processed on [employer] ThinPrep Imaging System, with manual evaluation Last Menstrual Period: ? 02/16/06 Other: ? Additional clinical information: Cervical polyp bleeds with pap ? SPECIMEN ADEQUACY ? Satisfactory for Evaluation - transformation zone component present - scant squamous epithelial component secondary to excessive blood GENERAL CATEGORIZATION ? Other, see interpretation INTERPRETATION ? Endometrial cells present in a woman equal to or greater than age 40. Negative for Intraepithelial Lesion or Malignancy. EDUCATIONAL NOTES/RECOMMENDATI ONS ? Benign appearing endometrial cells on Pap tests are usually a normal finding in women with regular menstrual cycles, especially if the Pap test was collected during the first half of the menstrual cycle. There is data showing that endometrial cells on Pap tests may be associated with endometrial/uterin e abnormalities in post menopausal women or in perimenopausal women with abnormal bleeding. There is limited data on the significance of benign endometrial cells in post menopausal women on HRT. ??Clinical correlation is recommended. Note: ??The Pap test is not an accurate test for the screening of endometrial lesions and should not be used as a follow up in patients with clinical suspicion of endometrial pathology. ? Document reviewed and electronically signed by: ? PEDRITO Morales(ASCP) ? Report Date: ??02/26/2006 11:33 End of Report BRENDA MCQUEEN 02/23/2006 02/24/2006 Clint Arguelles MD PATHOLOGY ORDERABLES BRENDA MCQUEEN [address] [place] [address] documented in this encounter Visit Diagnoses Not on filedocumented in this encounter
--- OUTSIDE RECORDS SUMMARY | 2024-08-22 22:41 | XMS_ITS | Encounter Summary ---
Author Organization [facility] Address [address] [place] [address] Care Team Providers Care Shift Superintendent Name Role Phone Josiah Ryan MD Primary Care Provider [phone] Encounter Details Date Type Department Care Team (Late st Contact Info) Description 12/10/2017 Results Only [facility] [phone] Katharina Zambrano, [address] [place], [place] [id number] Social History Tobacco Use Types Packs/Day Years Used Date Smoking Tobacco: Never Assessed Sex and Gender Information Value Date Recorded Sex Assigned at Not on file Gender Identity Not on file Sexual Orientation Not on file documented as of this encounter Plan of Treatment Not on file documented as of this encounter Procedures Procedure Name Priority Date/Time Associated Diagnosis Comments SURGICAL PATHOLOGY Routine 12/10/2017 16 :28 EST documented in this encounter Results * SURGICAL PATHOLOGY (12/10/2017 16:28 EST) Pathology Report: SURGICAL PATHOLOGY REPORT Reports generated via electronic interface contain original data; however they are lacking the format of the original report. Caution should be taken when reading/interpret ing unformatted reports. Name: ? YULIYA BONNER ? Accession #: ? [id number] ? : ? 1960 (Age: 57) ??F ? Collect Date: ? 12/10/2017 ? Location: ? [facility] ? Receive Date: ? 12/13/2017 ? Provider: KATHARINA ZAMBRANO DO Copy to: BHARATHI ALONZO DO ? Final Pathologic Diagnosis: SKIN OF TRAPEZIUS, LEFT, SHAVE BIOPSY: - Squamous cell carcinoma in situ, involving a peripheral edge. Microscopic Description: Multiple levels are obtained. ??(Dr. Zepeda)/[facility] Document reviewed and electronically signed by: BONNIE ZEPEDA MD Report ??Date: 12/14/2017 14:40 By the signature above, the attending physician certifies that he/she has personally conducted a gross and/or microscopic examination of the described specimens and rendered or confirmed the above diagnosis. Specimen(s) Received: Left trapezius skin Clinical History: Nonhealing skin lesion; clinical diagnosis code: D49.2 Gross Description: ? Received in formalin labelled with proper patient identification (initials D, A) and left trapezius is a shave biopsy of parisi-girard variegated granular skin (1.4 x 1.0 x 0.1 cm). Serially sectioned and submitted in 1 and 2. ANNE Hickman (ASCP) 12/13/2017 4:58 PM End of Report [facility] 12/10/2017 16:2 8 EST 12/13/2017 16:28 EST Katharina Zambrano DO PATHOLOGY ORDER LENCHO [facility] [address] [place] [address] documented in this encounter Visit Diagnoses Not on filedocumented in this encounter Care Teams Shift Superintendent Relationship Specialty Start Date End Date Josiah Ryan MD [address] [place] [address] [place] [address] PCP - General 02/29/12 12/14/17 documented as of this encounter
== END 2024-08-22 22:50 ==
PROVIDERS: PCP General Practice; Visit Provider Nurse Practitioner Family
DX: M79.674 Pain in right toe(s) (principal)
CPT/HCPCS: 73660